=== PATIENT | female | born 1965 | race Caucasian/White ===

== ENCOUNTER 2023-09-22 10:44 | Outpatient (CLI) | payer BC, SELFPAY | END 2023-09-22 10:45 | disposition home or self-care (01) | LOC: NFLDREF 10-04 12:34 | PROVIDERS: PCP Family Medicine; Visit Provider Family Medicine | DX: Z13.220 Encounter for screening for lipoid disorders (principal); Z13.228 Encounter for screening for other metabolic disorders | CPT/HCPCS: 80053; 80061 ==

== ENCOUNTER 2023-09-28 08:33 | Outpatient (CLI) | payer BC, SELFPAY ==
--- NOTE | 2023-09-28 09:00 | CT_ITS ---
Patient: AMELIA CHAHAL Facility:?[facility] Patient ID:?[id number] Site Patient ID:?[id number] Site :?1965 Study:?CT-Abdomen/Pelvis w/ 100cc [id number]/7/2024 9:30:28 AM Ordering Physician:Phylicia Nolen Final Report: Indication: Lower abd pain Technique: CT Abdomen/Pelvis w/ 100cc [id number] Please note that all CT scans at this facility use dose modulation, iterative reconstruction, and/or weight-based dosing when appropriate to reduce radiation dose to as low as reasonably achievable. Comparison: None Findings: The lung bases are clear. Incidental calcified granuloma in the right anterior lung base. The spleen is normal. Small focus of fat deposition in the liver is present adjacent to the falciform ligament. Incidental cyst within the left hepatic lobe measuring less than 1 cm. The right kidney, adrenal glands and ureters are within normal limits. 4 millimeter stone upper pole left kidney. Incidental extrarenal pelvis noted on the left. The pancreas is within normal limits. Normal gallbladder. Umbilical hernia containing fat is noted measuring 2.4 cm. The bladder is within normal limits. The ovaries are normal. There is a calcified area associated with the left side of the uterus measuring 10 millimeters. Ill-defined hypodensity within the body of the uterus measuring 3.1 cm. Fluid distention of the fundal endometrial cavity noted measuring 2 cm. Mild anterior spurring lower lumbar spine. No fracture. Normal appendix. No bowel obstruction or free air. No excess pelvic free fluid or abscess. Impression: 4 millimeter nonobstructing stone upper pole left kidney. Abnormal uterus with ill-defined hypodensity within the mid/lower uterus measuring 3.1 cm. Probable left-sided calcified uterine fibroid. Associated distention of the fundal endometrium. Pelvic ultrasound recommended. Umbilical hernia containing fat measuring 2.4 cm. Please note that all CT scans at this facility use dose modulation, iterative reconstruction, and/or weight-based dosing when appropriate to reduce radiation dose to as low as reasonably achievable. Dictated by Angel Bruce MD @ 09/28/2023 10:41:34 AM Signed by:?Angel Bruce MD @09/28/2023 10:41:34 AM (Electronic Signature)
== END 2023-09-28 08:34 | disposition home or self-care (01) ==
LOC: CT 08:35
PROVIDERS: PCP Family Medicine; Visit Provider Family Medicine
DX: R10.30 Lower abdominal pain, unspecified (principal); N20.0 Calculus of kidney; D25.9 Leiomyoma of uterus, unspecified; K42.9 Umbilical hernia without obstruction or gangrene
CPT/HCPCS: 74177; Q9967

== ENCOUNTER 2023-10-13 10:54 | Outpatient (CLI) | payer BC, SELFPAY ==
--- NOTE | 2023-10-13 11:15 | US_ITS ---
Patient: AMELIA CHAHAL Facility:?[facility] Patient ID:?[id number] Site Patient ID:?[id number]. Site :?1965 Study:?US-Pelvis TRANSABDOMINAL AND TRANSVAGINAL-10/13/2023 12:39:18 PM Ordering Physician:?ANA MARIA GUILLAUME Final Report: CLINICAL HISTORY: Pain TECHNIQUE: Real time, fleming scale images were acquired of the pelvis using a transabdominal and transvaginal approach. Color Doppler analysis was performed of the ovaries. FINDINGS: The uterus measures 11.3 x 4.7 x 7.3 centimeters. The superior endometrial cavity is distended and fluid-filled. The lower uterine segment and proximal endometrial cavity appears indistinct there is vascularity can not exclude presence of uterine mass. The right ovary is suboptimally visualized but appears grossly unremarkable measuring 3.3 3 x 1.1 x 2 centimeters. Some vascularity seen on color Doppler the left ovary is not seen. No free fluid IMPRESSION: 1. Superior endometrial cavity appears distended and fluid-filled. The lower uterine segment and proximal endometrial cavity appears indistinct with vascularity. Can not exclude presence of a uterine mass. Would recommend gynecology consultation and direct visualization. Dictated by Maria Del Carmen Payne MD @ 10/15/2023 9:43:44 AM Signed by:?Maria Del Carmen Payne MD @10/15/2023 9:43:44 AM (Electronic Signature)
== END 2023-10-13 10:55 | disposition home or self-care (01) ==
LOC: US 10:55
PROVIDERS: PCP Family Medicine; Visit Provider Family Medicine
DX: R10.2 Pelvic and perineal pain (principal); R93.5 Abnormal findings on diagnostic imaging of other abdominal regions, including retroperitoneum
CPT/HCPCS: 76830; 76856; 93976

== ENCOUNTER 2023-10-27 11:43 | Outpatient (CLI) | payer BC, SELFPAY | END 2023-10-27 11:44 | disposition home or self-care (01) | LOC: LKVREF 11:44 | PROVIDERS: PCP Family Medicine; Visit Provider Obstetrics & Gynecology | DX: R19.00 Intra-abdominal and pelvic swelling, mass and lump, unspecified site (principal) | CPT/HCPCS: 86304 ==